=== PATIENT | male | born 1940 | race Caucasian/White ===

== ENCOUNTER 2016-11-02 05:01 | Inpatient (IN) | payer OTHER ==
[2016-10-14 13:28] VITALS: BMI 31.0
--- NOTE | 2016-10-14 14:04 | PAT Medication Instructions ---
Service Date Oct 14, 2016. Current Home Medication List Acetaminophen Tab (Tylenol), 325 MG PO BID PRN for RN Amlodipine (Norvasc), 10 MG PO QPM Aspirin (Aspirin Ec), 325 MG PO BID PRN for RN Furosemide (Lasix), 20 MG PO BID Ocuvite Preservision (Ocuvite Preservision), 1 TAB PO QAM Potassium Chloride (Micro-K Ext Rel), 20 MEQ PO QAM Quinapril Hcl (Quinapril Hcl), 1 TAB PO BID [[facility]], 1 TAB PO QAM Medication Instructions For Your Scheduled Surgery - Hold the following medications 2 weeks prior to surgery: [[facility]], 1 TAB PO QAM - Hold the following medications 7 days prior to surgery: Aspirin (Aspirin Ec), 325 MG PO BID PRN may take maximum of 1 baby aspirin (Aspirin 81mg) daily within one week prior to surgery) - Hold the following medications 24 hours prior to surgery: Quinapril Hcl (Quinapril Hcl), 1 TAB PO BID - Hold the following medications the morning of surgery: Furosemide (Lasix), 20 MG PO BID Ocuvite Preservision (Ocuvite Preservision), 1 TAB PO QAM Potassium Chloride (Micro-K Ext Rel), 20 MEQ PO QAM - Take the following medications the morning of surgery with a sip of water OTHERWISE NOTHING TO EAT OR DRINK AFTER MIDNIGHT: Acetaminophen Tab (Tylenol), 325 MG PO BID PRN (may take if needed up to 4 hours prior to surgery) - Take the following medications as scheduled the night before surgery: Acetaminophen Tab (Tylenol), 325 MG PO BID PRN Amlodipine (Norvasc), 10 MG PO QPM Furosemide (Lasix), 20 MG PO BID If you have any questions please call us at [phone] or [phone] or [phone]
--- NOTE | 2016-10-14 14:51 | DIAGNOSTIC IMAGING REPORT ---
CHEST PREADMISSION(PA/LAT) CLINICAL HISTORY: PAT preoperative evaluation COMPARISON STUDY: No previous studies for comparison. FINDINGS: The bones soft tissues and hemidiaphragms are normal. The cardiomediastinal silhouette is normal. The lungs are clear. The pulmonary vasculature is normal. IMPRESSION: Negative chest. Electronically signed by: Mark See M.D. 10/14/2016 2:48 PM Dictated Date/Time: 10/14/2016 2:48 PM
[2016-10-14 15:08] LABS: BUN/CREATININE RATIO 13.3 (10-20); CALCIUM 8.5 mg/dl (8.5-10.1); CREATININE 1.2 mg/dl (0.60-1.40); POTASSIUM 3.3 mmol/L (3.5-5.1)
[2016-10-14 15:19] LABS: BASO % 0.1 %; BASO ABS # 0.01 K/uL (0-0.2); COMPLETE YES; EOS % 3.6 %; HEMATOCRIT 39.7 % (42-52); IG% 0.2 %; LYMPH % 17.4 %; LYMPH ABS # 1.55 K/uL (1.2-3.4); MEAN CELL VOLUME 86.3 fL (80-100); MEAN CORPUSCULAR HEMOGLOBIN 29.8 pg (25-34); MEAN CORPUSCULAR HGB CONC 34.5 g/dl (32-36); MEAN PLATELET VOLUME 9.1 fL (7.4-10.4); NEUT % 69.7 %; PLATELET COUNT 267 K/uL (130-400); WHITE BLOOD COUNT 8.92 K/uL (4.8-10.8)
[2016-10-14 15:40] LABS: URINE APPEARANCE CLEAR (CLEAR); URINE BILIRUBIN NEG (NEG); URINE COLOR YELLOW; URINE NITRITE NEG (NEG); UROBILINOGEN NEG (NEG); ZZUR CULT IF INDIC CLEAN CATCH NO
[2016-10-14 15:41] LABS: PROTHROMBIN TIME (PATIENT) 10.6 SECONDS (9.0-12.0)
[2016-10-14 16:02] LABS: MANUAL MICROSCOPIC REQUIRED? NO; REVIEW REQ? NO
[2016-10-15 06:10] LABS: ESTIMATED AVERAGE GLUCOSE 148 mg/dl; HA1C FLAG Normal (Normal)
--- NOTE | 2016-11-01 15:17 | HISTORY & PHYSICAL EXAMINATION ---
DATE OF ADMISSION: 11/02/2016 CHIEF COMPLAINT: Right hip pain. HISTORY OF PRESENT ILLNESS: Jeff is a 76-year-old male with a 10-year history of right hip pain. The patient rates his pain a 10/10. He has pain with his daily activities. He has limited standing and walking tolerance. Pain is worse with weightbearing. The patient has been using anti-inflammatories, narcotics and Tylenol without relief. He is now using crutches to ambulate. He has failed conservative treatment and is scheduled for right hip replacement. PAST MEDICAL HISTORY: Hypertension and borderline diabetes. He denies heart disease or DVT. PAST SURGICAL HISTORY: Appendectomy, right knee arthroscopy, lumbar spine fusion, prostatectomy and right total knee arthroplasty. SOCIAL HISTORY: The patient denies alcohol or tobacco use. He lives in a 2-story home. He is and retired. FAMILY HISTORY: Negative for DVT. MEDICATIONS: Lasix 20 mg b.i.d., K-Dur 20 mEq daily, quinapril 20 mg daily, Norvasc 10 mg daily, omega-3 health, aspirin 325 mg, PreserVision p.r.n., Tylenol p.r.n. ALLERGIES: None. REVIEW OF SYSTEMS: See HPI. Ten other systems reviewed, all negative. PHYSICAL EXAMINATION: VITAL SIGNS: Height 5 foot 7, weight 200 pounds. BMI is 31. GENERAL: This is a well-developed, well-nourished male who is alert and oriented x3. Mood and affect are appropriate. HEENT: Normocephalic, atraumatic. Mucous membranes are moist and intact. NECK: Supple without lymphadenopathy. HEART: Regular rate and rhythm without murmurs, rubs or gallops. LUNGS: Clear to auscultation without wheezes or rhonchi. ABDOMEN: Soft and nontender. Bowel sounds are equal and active. EXTREMITIES: No ecchymosis, redness or warmth. Log roll of the hip reproduces pain in the groin. Range of motion is decreased. He is neurovascularly intact with +5/5 strength. He walks with an antalgic gait. X-RAY EXAMINATION: AP and lateral views show joint space narrowing with large osteophyte formation. IMPRESSION: Degenerative joint disease, right hip. PLAN: The patient will be admitted for a right total hip arthroplasty. We will plan on aspirin for DVT prophylaxis. PCP is Dr. Townsend. He will have [facility] for home physical therapy.
[~2016-11-02] VITALS: Ht 172.7 cm; Wt 91.7 kg
[2016-11-02] VITALS (10 sets, daily range): BP systolic 111–156; BP diastolic 71–86; PULSE 87–99; TEMP 36.4–37; O2SAT 92–97; Ht 172.7 cm; Wt 91.7 kg
[~2016-11-02 05:01] MED LIST: ACET325T96 PO; AMLO-114 PO; ASPI325T39 PO; FURO-85 PO; MULT-190 PO; POTA10CA28 PO; QUIN20TA30 PO; [UNRECOGNIZED DRUG - OTHER] PO
[2016-11-02] MEDS ORDERED: OXYCODONE HCL 10 MG TABCR (OXYCONTIN) PO SCH (06:00)
[2016-11-02] MEDS ORDERED: ACETAMINOPHEN 500 MG TAB PO SCH (06:00)
[2016-11-02] MEDS ORDERED: CEFAZOLIN 2000 MG/60 ML D5W 60 ML IV SCH (06:00)
[2016-11-02] MEDS ORDERED: METOCLOPRAMIDE HCL 10 MG TAB PO SCH (06:00)
[2016-11-02] MEDS ORDERED: ROPIVACAINE 5MG/ML 30 ML 150 MG, BUPIVACAINE/EPINEPHR 0.5% MPF 30 ML, KETOROLAC TROMETH... INFIL SCH ×7 (06:00)
[2016-11-02] MEDS ORDERED: TRANEXAMIC ACID INJ 1,000 MG in SODIUM CHLORIDE 0.9% 100ML 100 ML IV SCH ×2 (06:00→16:00)
[2016-11-02] MEDS ORDERED: GABAPENTIN 300 MG CAP PO SCH (06:00)
[2016-11-02] MEDS ORDERED: LACTATED RINGER'S 1000ML 1,000 ML IV SCH (06:00)
[2016-11-02] MEDS ORDERED: DEXAMETHASONE 4 MG TAB PO SCH (06:00)
[2016-11-02] MEDS ORDERED: LACTATED RINGER'S 1000ML IV SCH (06:00)
[2016-11-02] MEDS ORDERED: VANCOMYCIN INJ 400 MG in NSS 100ML IR SCH (06:00)
[2016-11-02] MEDS ORDERED: POLYMYXIN B SULFATE 100,000 UNITS in NSS 100ML IR SCH (06:00)
[2016-11-02] MEDS ORDERED: FAMOTIDINE 20 MG TAB PO SCH (06:00)
[2016-11-02] MEDS ORDERED: LACTATED RINGER'S 1000ML 500 ML IV ONE (06:00)
[2016-11-02] MEDS ORDERED: CeleBREX 200 MG CAP PO SCH (06:00)
[2016-11-02] MEDS: TRANEXAMIC ACID INJ 1,000 MG in SODIUM CHLORIDE 0.9% 100ML 100 ML IV SCH ×2 (06:24→10:20)
[2016-11-02] MEDS ORDERED: BUPIVACAINE 0.5 % 5 MG/1 ML PF 10ML VIAL ONE (06:27)
[2016-11-02] MEDS ORDERED: MIDAZOLAM HCL 1 MG/ML 2ML VIAL ONE ×2 (06:40)
[2016-11-02] MEDS ORDERED: ONDANSETRON INJ 2 MG/ML 2 ML VIAL ONE (06:40)
[2016-11-02] MEDS ORDERED: DEXAMETHASONE SOD INJ 4 MG/ML VIAL ONE (06:40)
[2016-11-02] MEDS ORDERED: LIDOCAINE HCL 2% 2 ML VIAL (20MG/ML) ONE (06:40)
[2016-11-02] MEDS ORDERED: FENTANYL CITRATE INJ 50 MCG/1 ML 2 ML VIAL ONE (06:40)
[2016-11-02] MEDS ORDERED: PROPOFOL IV EMULSION 10 MG/ML 20 ML VIAL IV ONE (06:40)
[2016-11-02] MEDS ORDERED: ORTHO JOINT ANESTHETIC ONE (06:51)
[2016-11-02] MEDS ORDERED: BACITRACIN 50000 UNIT VIAL ONE (06:52)
[2016-11-02] MEDS ORDERED: POVIDONE-IODINE OP SOLN 30 ML BTL ONE (06:52)
[2016-11-02] MEDS ORDERED: LACTATED RINGER'S 1000ML 1,000 ML IV PRN (06:54)
[2016-11-02] MEDS ORDERED: FENTANYL CITRATE INJ 50 MCG/1 ML 2 ML VIAL IV PRN (07:00)
[2016-11-02] MEDS ORDERED: ONDANSETRON INJ 2 MG/ML 2 ML VIAL IV PRN ×2 (07:00→09:00)
--- NOTE | 2016-11-02 07:04 | History & Physical Bridge Note ---
H&P Re-Evaluation Bridge Note: I have examined the patient, reviewed the History & Physical and in the interval since the performance of the History & Physical I have noted the following changes of clinical significance: No changes noted
--- NOTE | 2016-11-02 08:47 | [facility] Post Operative Brief Note ---
Immediate Operative Summary Operative Date November 02, 2016. Pre-Operative Diagnosis Right Hip Degenerative Joint Disease Post-Operative Diagnosis Same as Preop Procedure(s) Performed Right Total Hip Arthroplasty Uncemented Direct Anterior Approach Surgeon Dr. Matthew Forest Science Professor Surgeon(s) Milana Betancourt PA-C Estimated Blood Loss 75 ml Findings DJD Specimens Right Femoral Head Complication(s) None Disposition Recovery Room / PACU
[2016-11-02] MEDS ORDERED: DiphenhydrAMINE HCL 50 MG/ML VIAL ONE (08:51)
--- NOTE | 2016-11-02 08:52 | DIAGNOSTIC IMAGING REPORT ---
RIGHT HIP UNILATERAL 1 VIEW CLINICAL HISTORY: RIGHT ANTERIOR HIP Right arthroplasty COMPARISON: None. DISCUSSION: Evidence for a total right hip arthroplasty. Expected postoperative soft tissue change IMPRESSION: Total right hip arthroplasty Electronically signed by: Mark See M.D. 11/02/2016 8:51 AM Dictated Date/Time: 11/02/2016 8:51 AM
[2016-11-02] MEDS ORDERED: SOD PHOSPHATE/SOD BIPHOSPHATE ENEMA 132 ML BTL PR PRN (09:00)
[2016-11-02] MEDS ORDERED: TRAMADOL HCL 50 MG TAB PO PRN (09:00)
[2016-11-02] MEDS ORDERED: METOCLOPRAMIDE HCL INJ 5 MG/ML 2 ML VIAL IV PRN (09:00)
[2016-11-02] MEDS ORDERED: DiphenhydrAMINE HCL 50 MG/ML VIAL IV PRN (09:00)
[2016-11-02] MEDS ORDERED: BISACODYL 10 MG SUPP PR PRN (09:00)
[2016-11-02] MEDS ORDERED: OXYCODONE HCL IR 5 MG TAB (IMMEDIATE RELEASE) PO PRN (09:00)
[2016-11-02] MEDS ORDERED: ZOLPIDEM TARTRATE 5 MG TAB PO PRN (09:00)
[2016-11-02] MEDS ORDERED: MoRPHine SULFATE 2 MG/ML CARP IV PRN (09:00)
[2016-11-02] MEDS ORDERED: ALUMINUM/MAGNESIUM/SIMETH (MAALOX MAX) 30 ML UDC PO PRN (09:00)
[2016-11-02] MEDS ORDERED: QUINAPRIL HCL PO SCH (09:00)
[2016-11-02] MEDS ORDERED: MAGNESIUM HYDROXIDE SUSP 30 ML UDC PO PRN (09:00)
[2016-11-02] MEDS ORDERED: PHARMACY GLYCEMIC MGMT CONSULT PRN (09:15)
--- NOTE | 2016-11-02 09:53 | DIAGNOSTIC IMAGING REPORT ---
AP PELVIS AND RIGHT HIP 2 VIEWS CLINICAL HISTORY: Postop total right hip arthroplasty COMPARISON STUDY: No previous studies for comparison. FINDINGS: Bilateral total hip arthroplasties are visualized. There is air within soft tissues in the right consistent with recent surgery. There is a overlying surgical drain. There is no dislocation. There are no acute fractures. There is mild thickening of the lateral cortex of the left femur at the level of the tip of the femoral stem. IMPRESSION: Postsurgical changes of a recent total right hip arthroplasty. No acute fractures or dislocations. Electronically signed by: Bernard Naqvi M.D. 11/02/2016 9:52 AM Dictated Date/Time: 11/02/2016 9:50 AM
--- NOTE | 2016-11-02 10:38 | Anesthesiology Progress Note ---
Anesthesia Post Op Note Date & Time November 02, 2016 at 10:38 Vital Signs Pain Intensity: 0 Vital Signs Past 12 Hours Date Time Temp Pulse Resp B/P Pulse Ox O2 Delivery O2 Flow Rate FiO2 11/02/16 09:55 36.4 99 18 133/82 96 Nasal Cannula 2.0 11/02/16 09:35 93 20 129/79 97 Nasal Cannula 2 11/02/16 09:25 36.5 93 15 107/71 98 Nasal Cannula 2 11/02/16 09:15 90 20 117/70 94 Nasal Cannula 2 11/02/16 09:07 36.2 92 15 107/70 96 Nasal Cannula 2 11/02/16 05:51 37 99 20 156/86 92 Room Air Notes Mental Status: alert / awake / arousable, participated in evaluation Pt Amnestic to Procedure: No (recall as expected) Nausea / Vomiting: adequately controlled Pain: adequately controlled Airway Patency, RR, SpO2: stable & adequate BP & HR: stable & adequate Hydration State: stable & adequate Neuraxial Anesthesia: was administered, sensory block is resolving Anesthetic Complications: no major complications apparent Pt did well.
[2016-11-02] MEDS: SODIUM CHLORIDE 0.9% 1000ML 1,000 ML IV SCH ×2 (10:51→20:49)
[2016-11-02] MEDS ORDERED: GLUCOSE 10 TABS/TUBE PO PRN (11:15)
[2016-11-02] MEDS ORDERED: GLUCOSE 40% GEL 15 GM TUBE PO PRN (11:15)
[2016-11-02] MEDS ORDERED: GLUCAGON FOR INJ 1 MG VIAL SQ PRN (11:15)
[2016-11-02] MEDS ORDERED: DEXTROSE 50% 50 ML SYR IV PRN (11:15)
--- NOTE | 2016-11-02 11:17 | Pharmacy Progress Note ---
Glycemic Control Intl Consult Date of Service November 02, 2016. Scope Glycemic Pharmacist consulted by Dr Matthew on 11/02/2016 for glycemic control and to write orders per [facility] inpatient glycemic control protocol Objective Weight (Kilograms): 91.700 Accuchecks BSG (last 24hrs): Test 11/02/16 06:41 11/02/16 09:18 Bedside Glucose 139 mg/dl (70-99) 181 mg/dl (70-99) HbA1c Test 10/14/16 14:20 Hemoglobin A1c 6.8 % (4.5-5.6) H Recent Pertinent Medications Outpatient Anti-diabetic Regimen: * diet controlled Risk Factors for Insulin Resistance: * Steroids: dexamethasone 8 mg PO preop and dexamethasone 4 mg IV intraoperatively; dexamethasone in topical ortho prep * Recent Surgery: CARRIE POD 0 * Diet: type 2 diet Assessment & Plan ASSESSMENT: * ADA & AACE recommend a goal blood sugar range 140-180 mg/dl for the majority of critically ill & non-critically ill patients. However, more stringent targets may be selected in individual cases. Will utilize more stringent goal of 100-140 mg/dl based on patient age & comorbidities. Additionally, tighter glycemic control is warranted to facilitate wound/infection healing. * Mr Mora is a 76 y/o M with a slightly elevated A1C and diet controlled diabetes. He is s/p hip replacement POD 0 with steroids usage orally, topically , and intravenously. This use of dexamethasone indicates higher doses of insulin should be utilized. A one time dose of Lantus (stress of 2 weight based ) was utilized today and then a dose tomorrow morning (stress of 1 weight based ) at a lower dose as dexamethasone will start to lose its effects 24 hours post- op. * A stricter correctional Novolog will be utilized since multiple sources of dexamethasone were utilized. Overnight Accuchecks will be utilized with slightly less strict correctional insulin to ensure that blood glucose is maintained. PLAN FOR INPATIENT GLYCEMIC CONTROL: * Basal insulin with LANTUS 15 units SQ x 1 then LANTUS 10 units SQ x1 5/3 @ 0900 (hold if blood sugar < 120 mg/dL) * Correctional Insulin with NOVOLOG per scale ACHS * Goal Range: Low 100 mg/dL - High 140 mg/dL * Correction Factor: 25 mg/dL/unit (30 mg/dL/unit overnight) * Nutritional/Prandial insulin per carb ratio of 1 unit per 9 grams CHO consumed ( 1 units per 10 grams CHO consumed overnight) * * Please note that the plan above was derived based on current level of insulin resistance and hospital stress. These recommendations are appropriate for inpatient admission only. Plan of care upon discharge will need to be reassessed to avoid potential outpatient hypo/hyperglycemia. Thank you.
[2016-11-02] MEDS ORDERED: INSULIN GLARGINE SOLOSTAR 100 UNITS/ML 3 ML PEN SC ONE (12:00)
[2016-11-02] MEDS: POTASSIUM CHLORIDE 10 MEQ TABCR PO SCH (12:04)
[2016-11-02] MEDS: INSULIN ASPART 100 UNITS/ML 3 ML PEN SC SCH ×3 (13:25→20:56)
[2016-11-02] MEDS: ACETAMINOPHEN 500 MG TAB PO SCH ×2 (13:28→21:30)
[2016-11-02] MEDS: KETOROLAC TROMETHAMINE 15 MG/ML VIAL IV. SCH ×2 (13:29→19:36)
[2016-11-02] MEDS: CEFAZOLIN IV 2,000 MG in DEXTROSE 5% 50ML 50 ML IV SCH ×2 (13:35→21:29)
[2016-11-02] MEDS: FUROSEMIDE 20 MG TAB PO SCH (16:45)
--- NOTE | 2016-11-02 17:51 | OPERATIVE REPORT ---
DATE OF OPERATION: 11/02/2016 PREOPERATIVE DIAGNOSIS: Degenerative arthritis, right hip. POSTOPERATIVE DIAGNOSIS: Same. PROCEDURE: Right total hip replacement. SURGEON: Harsh Matthew MD BLAST FURNACE SUPERVISOR: JENNY Red ANESTHESIA: Spinal. BLOOD LOSS: 75 mL. REPLACEMENT FLUIDS: 1800 mL of crystalloid. DRAINS: Hemovac x2. CULTURES: None. COMPLICATIONS: None. COMPONENTS USED: [employer] Polar hip system: Acetabulum size 54, femur size 8 high offset, femoral head 0, neck length 36 mm. NOTE: JENNY Red was present and assisted throughout due to the complicated nature of this case. She helped with preparation and set up, first assisted throughout and personally closed the fascial, subcutaneous and skin layers and applied the postoperative dressing. DESCRIPTION OF PROCEDURE: Following satisfactory spinal, the patient was supine. The right leg was placed in the traction device and the left leg in the well leg de la o. The right leg was prepared with ChloraPrep and draped sterilely. Following a surgical time-out, an anterior approach was performed to the hip and the interval between the sartorius and tensor muscles. Circumflex femoral vessels were identified and ligated. An anterior capsulotomy was performed, exposing a severely arthritic femoral neck and head. The femoral neck and head were trimmed and removed. The acetabular self-retraining retractor was placed. Acetabular reaming was completed and under fluoroscopic guidance, the 54 shell was impacted into an anatomic position and secured with a dome screw. Local anesthetic was placed and after irrigation, the poly liner was placed. The femur was placed into position of external rotation, extension and adduction. Femoral canal was prepared up to the size 8. Using fluoroscopy, a trial reduction showed good fit and fill of the proximal canal and buddhist of leg lengths using anatomic landmarks. The hip was dislocated. The trial component was removed. The final implant was placed and after irrigation, the hip was reduced with fluoroscopy confirming. Betadine soak was performed. After irrigation, the drain was placed. The capsule was closed with #1 Vicryl interrupted, the fascia with #1 Vicryl, the subcutaneous tissues with 2-0 Vicryl and the skin with a running subcuticular stitch of 3-0 V-Loc. Dermabond and a dry dressing were applied. The patient was returned to his bed in good condition. I attest to the content of the Intraoperative Record and any orders documented therein. Any exceptio ns are noted below.
[2016-11-02] MEDS: ENALAPRIL MALEATE 10 MG TAB PO SCH (20:52)
[2016-11-02] MEDS: ASPIRIN 81 MG ECTAB PO SCH (20:53)
[2016-11-02] MEDS ORDERED: AMLODIPINE BESYLATE 5 MG TAB PO SCH (21:00)
[2016-11-02] MEDS ORDERED: SENNA 8.6 MG TAB PO SCH (21:00)
[2016-11-03] MEDS: INSULIN ASPART 100 UNITS/ML 3 ML PEN SC SCH ×4 (00:23→12:46)
[2016-11-03] MEDS: KETOROLAC TROMETHAMINE 15 MG/ML VIAL IV. SCH ×2 (02:22→08:33)
[2016-11-03 04:14] VITALS: BP 108/66; PULSE 71; TEMP 36.7; O2SAT 93
[2016-11-03] MEDS: SODIUM CHLORIDE 0.9% 1000ML 1,000 ML IV SCH (05:38)
[2016-11-03] MEDS: ACETAMINOPHEN 500 MG TAB PO SCH (05:38)
[2016-11-03 05:50] LABS: COMPLETE YES; EOS % 0.1 %; HEMATOCRIT 32.6 % (42-52); IG% 0.3 %; LYMPH % 8.2 %; LYMPH ABS # 1.39 K/uL (1.2-3.4); MEAN CELL VOLUME 87.6 fL (80-100); MEAN CORPUSCULAR HGB CONC 33.1 g/dl (32-36); MEAN PLATELET VOLUME 8.8 fL (7.4-10.4); MONO % 8.4 %; PLATELET COUNT 246 K/uL (130-400); RED BLOOD COUNT 3.72 M/uL (4.7-6.1); WHITE BLOOD COUNT 17.01 K/uL (4.8-10.8)
[2016-11-03 06:23] LABS: BUN/CREATININE RATIO 17.4 (10-20); CALCIUM 7.9 mg/dl (8.5-10.1); CREATININE 0.97 mg/dl (0.60-1.40); POTASSIUM 3.8 mmol/L (3.5-5.1)
[2016-11-03 07:45] VITALS: BP 128/78; PULSE 67; TEMP 36.7; O2SAT 93
--- NOTE | 2016-11-03 08:07 | Discharge Instructions ---
Discharge Instructions Date of Service November 03, 2016. Admission Reason for Admission: Right Hip Degenerative Arthritis Discharge Discharge Diagnosis / Problem: SP RIGHT TOTAL HIP. DIRECT ANTERIOR Discharge Goals Goal(s): Decrease discomfort, Improve function, Increase independence Activity Recommendations Activity Limitations: per Instructions/Follow-up section . Instructions / Follow-Up Instructions / Follow-Up ACTIVITY RECOMMENDATIONS: SELF CARE INSTRUCTIONS AFTER TOTAL HIP REPLACEMENT : Direct Anterior Approach Until the incision and soft tissues around your hip have healed, there is a possibility that the hip prosthesis could dislocate. A. Hip flexion ( Up & Down out of chair or steps ) may be difficult. This is normal. B. Numbness in front of the thigh is also normal for a few weeks. C. Use hand rails when walking on stairs. D. Wear low heeled shoes with non-slip soles. E. Be sure that your floors are free of things that could trip you - throw rugs , electrical cords, small objects. Avoid wet and waxed floors, especially with crutches and canes. F. Try to walk several times a day with rest periods between. G. Continue with all the exercises taught to you in the hospital. Again, make walking a part of your daily routine. SPECIAL CARE INSTRUCTIONS: VERY IMPORTANT TO READ AND REVIEW A. You may still be at risk for phlebitis and blood clots. 1. Wear surgical stockings (ELENI hose) for 2 weeks after surgery to improve circulation and reduce swelling. 2. Take Aspirin 81mg twice daily for 4 weeks or as directed by your doctor. This is your blood thinner. 3. High risk patients may be prescribed a stronger blood thinner if necessary. 4. If you are on Coumadin normally, your family doctor/student finance advisor should monitor your blood work. Expect a phone call the day of or the day after bloodwork is drawn to adjust your dosage. B. You must take antibiotics before having dental work, bladder, bowel and other surgery. Your doctor will provide you with a permanent card to carry describing precautions. C. Call [facility] if you have a fever, redness or swelling around the incision, cloudy drainage from incision, or sudden increase in pain in your hip, not relieved by your regular pain medication. D. Please call the office at if you have any concerns or questions about your operation or recovery. * YOU MAY SHOWER, NO TUB BATHS UNTIL CLEARED BY YOUR DOCTOR. - Keep an extra close eye on the top portion of your incision. Be sure to keep clean & dry. * WEAR ELENI HOSE 20 HOURS PER DAY FOR 2 WEEKS. * YOU MAY PROGRESS FROM A WALKER, TO A CANE, TO INDEPENDENT AT YOUR OWN PACE. * MOST PATIENTS WILL HAVE HOME NURSING FOR THERAPY. IF YOU DECIDE TO DO OUTPATIENT PHYSICAL THERAPY, PLEASE SCHEDULE THIS 3 TIMES PER WEEK. * DERMABOND Prineo- This is a mesh tape dressing that is covered with glue. It should remain in place until the incision is properly healed, usually 10-14 days. This dressing is designed to naturally slough off. You may trim the excess mesh tape as it peels off. Incision may be briefly wet in a shower. Dry immediately by blotting with a clean, dry towel. Do not bath or swim until instructed by your doctor. Do not scratch, rub, or pick at the dressing. Do not apply any topical ointments or lotions until dressing is completely removed and/or instructed by your doctor. There may be a small piece of suture material at one end of your incision. Do not pull or trim this. If it is bothersome or catching on clothing, you may cover it with a band-aid. FOLLOW UP VISIT: If appointment is not already scheduled: Please call [facility] to make a follow-up appointment for 2 weeks after your surgery at . Current Hospital Diet Patient's current hospital diet: Diabetes Type 2 Diet Discharge Diet Recommended Diet: Regular Diet Procedures Procedures Performed: Right Total Hip Arthroplasty Uncemented Direct Anterior Approach Pending Studies Studies pending at discharge: no Laboratory Results Hemoglobin A1c Test 10/14/16 14:20 Range/Units Estimated Average Glucose 148 mg/dl Hemoglobin A1c 6.8 H 4.5-5.6 % Medical Emergencies . Who to Call and When: Medical Emergencies: If at any time you feel your situation is an emergency, please call 911 immediately. . Non-Emergent Contact Non-Emergency issues call your: Surgeon . "Provider Documentation" section prepared by Milana Betancourt. . VTE Core Measure Inpt VTE Proph given/why not?: Other Anticoagulation, T.E.D. Stockings, SCD's [place] Drug Monitoring Program Search Results: patient reviewed within database, no issues identified
[2016-11-03] MEDS ORDERED: ASPEC81 PO (08:09)
[2016-11-03] MEDS ORDERED: RXC5 PO (08:09)
[2016-11-03] MEDS ORDERED: CLB200 PO (08:09)
[2016-11-03] MEDS ORDERED: ACET-1138 PO (08:09)
[2016-11-03] MEDS ORDERED: ONDA8TAB6 PO (08:09)
[2016-11-03] MEDS ORDERED: SNK PO (08:09)
--- NOTE | 2016-11-03 08:15 | DISCHARGE SUMMARY ---
DISCHARGE DIAGNOSIS: Degenerative joint disease, right hip. SECONDARY DIAGNOSIS: None. CONSULTS: None. COMPLICATIONS: None. PROCEDURE: The patient underwent a right total hip arthroplasty with Dr. Matthew on 11/02/2016. BRIEF HISTORY: Please see previously dictated history and physical. HOSPITAL SUMMARY: The patient was admitted on the above day for the above procedure. Procedure went without complication. Postop day 1, the patient was feeling well without complaints. He denied chest pain or shortness of breath. Vital signs were stable. He was afebrile. Dressing was clean, dry and intact. He was neurovascularly intact. Calves were soft and nontender. Hemovac drained 25 and 5 mL per shift. Hemoglobin was 10.8. The patient began physical therapy per protocol. He was discharged to home later that day in stable condition. For further review please see the chart. Lab, x-ray data and discharge instructions as per chart.
[2016-11-03] MEDS: POTASSIUM CHLORIDE 10 MEQ TABCR PO SCH (08:34)
[2016-11-03] MEDS: ASPIRIN 81 MG ECTAB PO SCH (08:34)
[2016-11-03 08:37] VITALS: BP 133/81; PULSE 96
[2016-11-03] MEDS: ENALAPRIL MALEATE 10 MG TAB PO SCH (08:41)
[2016-11-03] MEDS: FUROSEMIDE 20 MG TAB PO SCH (08:42)
[2016-11-03] MEDS ORDERED: CEROVITE ADV FORMULA TAB PO SCH (09:00)
[2016-11-03] MEDS ORDERED: MULTIVITAMIN TAB PO SCH (09:00)
[2016-11-03] MEDS ORDERED: PANTOprazole SOD 40 MG TAB PO SCH (09:00)
[2016-11-03] MEDS ORDERED: INSULIN GLARGINE SOLOSTAR 100 UNITS/ML 3 ML PEN SC SCH (09:00)
[2016-11-03 10:12] VITALS: BP 133/81; PULSE 96; TEMP 36.7; O2SAT 93
[2016-11-03 11:48] VITALS: BP 128/72; PULSE 86; TEMP 36.7; O2SAT 98
--- NOTE | 2016-11-03 13:16 | Anesthesiology Progress Note ---
Anesthesia Post Op Note Date & Time November 03, 2016 at 11:00 Vital Signs Pain Intensity: 0.0 Vital Signs Past 12 Hours Date Time Temp Pulse Resp B/P Pulse Ox O2 Delivery O2 Flow Rate FiO2 11/03/16 11:48 36.7 86 18 128/72 98 Room Air 11/03/16 10:12 36.7 96 20 93 Room Air 11/03/16 08:37 96 133/81 11/03/16 07:45 36.7 67 20 128/78 93 Room Air 11/03/16 07:10 Room Air 11/03/16 04:14 36.7 71 16 108/66 93 Room Air Notes Mental Status: alert / awake / arousable, participated in evaluation Pt Amnestic to Procedure: Yes Nausea / Vomiting: adequately controlled Pain: adequately controlled Airway Patency, RR, SpO2: stable & adequate BP & HR: stable & adequate Hydration State: stable & adequate Neuraxial Anesthesia: sensory block resolved Anesthetic Complications: no major complications apparent
[2016-11-04] MEDS ORDERED: CeleBREX 200 MG CAP PO SCH (08:00)
== END 2016-11-03 13:09 | disposition home or self-care (01) | DRG 470 ==
LOC: ENRESERVTM → ENRESERVDT → C.ACU 05:01 → C.3E 07:01
PROVIDERS: ADMIT Orthopaedic Surgery; ATTEND Orthopaedic Surgery
PROC: 0SR904A Replacement of Right Hip Joint with Ceramic on Polyethylene Synthetic Substitute, Uncemented, Open Approach (ICD-10-PCS; principal; 2016-11-02 07:15)
DX: M16.11 Unilateral primary osteoarthritis, right hip (principal); I10 Essential (primary) hypertension; R73.03 Prediabetes; N40.0 Benign prostatic hyperplasia without lower urinary tract symptoms; E66.9 Obesity, unspecified; Z68.31 Body mass index [BMI] 31.0-31.9, adult; Z98.1 Arthrodesis status; Z96.642 Presence of left artificial hip joint; Z96.651 Presence of right artificial knee joint; Z87.891 Personal history of nicotine dependence; Z79.82 Long term (current) use of aspirin; Z79.899 Other long term (current) drug therapy